=== PATIENT | female | born 1995 | race Two or more races ===

== ENCOUNTER 2022-10-28 16:57 | Emergency (ER) | payer OTHER, SELFPAY ==
[2022-10-28 17:00] VITALS: BP 124/93; PULSE 98; RESP 16; TEMP 37.6; O2SAT 98; BMI 42.5
--- NOTE | 2022-10-28 17:58 | PC.NURSE ---
pt presents to ED because patients states 2 weeks ago she has a uti and was placed on keflex. pt finished antibiotic. pt symptoms never went away so she saw her pcp and was told that it coule have traveled up to her kidneys. pt states she went to urgent care today and was placed on valtrex and zofran. pt was swabbed for herpes but was told results would take 3 days to get back. pt states she started sleeping with someone new a month ago and always wears a condom but 2 weeks ago she didn't use one. pt states she now has blisters on her vagina and has burning and urgency with urination.
--- NOTE | 2022-10-28 18:02 | ED.GENADUL1 ---
HPI - General Adult General Chief complaint: Skin/Abscess/Foreign Body Stated complaint: UTI Time Seen by Provider: 10/28/22 17:30 Source: patient Mode of arrival: Wheelchair Limitations: no limitations History of Present Illness HPI narrative: patient is a 27-year-old female who presents to the emergency department for the evaluation of dysuria, blistered area on the genitals and flank pain. She states she has had nausea, chills but no objective fevers. She has had no vomiting. She denies any vaginal discharge, she has had mild vaginal spotting. She states she had sexual intercourse over the weekend, she and her partner used a condom. She is concerned that she may be having a reaction to the condom usage and having irritation. 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 She states she was treated for chlamydia several months ago with two pills. She is not concerned for . She reports some discomfort to the low back, she describes it as similar to menstrual period cramps. she was at urgent care prior to arrival, she was started on Valtrex and Zofran. She is tearful, she does not understand her treatment plan from urgent care and states that the urine was sent off but she was told she will not receive results for three days. Related Data Previous Rx's Medication Instructions Recorded cephalexin 500 mg capsule 500 mg PO Q8H 5 days #15 caps 10/28/22 fluconazole 150 mg tablet 150 mg PO DAILY 1 dose #1 tab 10/28/22 (Diflucan) oxycodone-acetaminophen 5 mg-325 1 tab PO Q6H PRN pain #10 tabs 10/28/22 mg tablet (Percocet) phenazopyridine 200 mg tablet 200 mg PO Q8H 2 days #6 tabs 10/28/22 (Pyridium) Allergies Allergy/AdvReac Type Severity Reaction Status Date / Time ibuprofen Allergy Intermediate Verified 10/28/22 17:00 Review of Systems ROS Constitutional Reports: chills; Denies: fever Ears, nose, mouth, and throat Denies: throat pain or neck pain Respiratory Denies: shortness of breath or cough Gastrointestinal Reports: nausea; Denies: abdominal pain or vomiting Genitourinary Reports: painful urination; Denies: pelvic pain Musculoskeletal Reports: back pain Neurological Denies: headache Hematologic/Lymphatic Denies: easy bruising Exam Narrative Exam Narrative: Gen.: Awake, alert, in no distress Head: Normocephalic, atraumatic ENT: Moist mucous membranes Respiratory: No respiratory distress Gastrointestinal: Abdomen is soft, nondistended and nontender to palpation : Patient examined with Mira Alexander RN at bedside throughout the duration of the exam. Multiple small vesicles noted of the right labia and perineum, two small vesicles noted of the left labia. Speculum exam shows minimal white vaginal discharge, no bleeding noted. No cervical motion tenderness or adnexal tenderness. No pain out of proportion on exam. Extremities: Moves extremities equally, no injuries noted Psych: Normal mood and affect Neuro: No focal neuro deficit Skin: Warm, dry, intact Constitutional Vital Signs - 24 hr 10/28/22 17:00 Temperature 99.6 F Pulse Rate [Monitor] 98 H Respiratory Rate 16 Blood Pressure [Right Arm] 124/93 H Pulse Oximetry 98 Course Vital Signs Vital signs: Vital Signs Temperature 99.6 F 10/28/22 17:00 Pulse Rate 98 H 10/28/22 17:00 Respiratory Rate 16 10/28/22 17:00 Blood Pressure 124/93 H 10/28/22 17:00 Pulse Oximetry 98 10/28/22 17:00 Temperature 99.6 F 10/28/22 17:00 Pulse Rate 98 H 10/28/22 17:00 Respiratory Rate 16 10/28/22 17:00 Blood Pressure 124/93 H 10/28/22 17:00 Pulse Oximetry 98 10/28/22 17:00 Medical Decision Making MDM Narrative Medical decision making narrative: pelvic exam was performed. Patient was noted to have blistered/vesicular areas to the labia and perineum. This is suspicious for genital herpes. A herpes viral culture was obtained in the emergency department as well as pelvic cultures for wet prep and gonorrhea/chlamydia. Patient was instructed that she should take the Valtrex until she is seen by a inspectors and regulatory officers or has pelvic cultures resulted. She has Zofran was given to her at urgent care. Her urine in the emergency department does show a urinary tract infection with negative test. Patient started on Keflex and she requests Diflucan to prevent yeast infection. Shee was given Diflucan, Keflex, Pyridium for urinary tract infection from the Emergency Room and discharged home with a prescription for Percocet for pain control as needed. She was given topical Urojet to apply to vesicles on the labia for comfort. She was strongly encouraged follow-up closely with her inspectors and regulatory officers, we will refer her to Dr. Keen's office. Return to the emergency department if symptoms change or worsen. Medical Records Medical records reviewed: Yes I reviewed the patient's medical records Lab Data Lab results reviewed: Yes I reviewed the patient's lab results Labs: Lab Results 10/28/22 10/28/22 Range/Units 17:05 18:08 Urine Color Lt. yellow (YELLOW) Urine Clarity Clear (CLEAR) Urine pH 6.0 (5.0-9.0) Ur Specific [place] 1.010 (1.005-1.025) Urine Protein Negative (NEG/TRACE) mg/dL Urine Glucose (UA) Negative (NEGATIVE) mg/dL Urine Ketones Negative (NEGATIVE) mg/dL Urine Occult Blood Small A (NEGATIVE) Urine Nitrite Negative (NEGATIVE) Urine Bilirubin Negative (NEGATIVE) Urine Urobilinogen 1.0 (0.2-1.0) EU/dL Ur Leukocyte Esterase Trace A (NEGATIVE) Urine RBC 2-5 A (0-2) #/HPF Urine WBC 5-10 A (NONE SEEN) #/HPF Ur Squamous Epith Cells Few A (NONE/RARE) #/LPF Urine Crystals None seen (None Seen) #/HPF Urine Bacteria Trace A (NONE SEEN) #/HPF Urine Casts None seen (NONE SEEN) #/LPF Urine Mucus Trace A (NONE SEEN) Ur Culture Indicated? Yes Urine HCG, Qual Negative (NEGATIVE) Discharge Plan Discharge Chief Complaint: Skin/Abscess/Foreign Body Clinical Impression: UTI (urinary tract infection), Skin rash Patient Disposition: Home, Self-Care Time of Disposition Decision: 18:29 Condition: Good Prescriptions / Home Meds: New cephalexin 500 mg capsule 500 mg PO Q8H 5 Days Qty: 15 0RF phenazopyridine [Pyridium] 200 mg tablet 200 mg PO Q8H 2 Days Qty: 6 0RF oxycodone-acetaminophen [Percocet] 5-325 mg tablet 1 tab PO Q6H PRN (Reason: pain) Qty: 10 0RF fluconazole [Diflucan] 150 mg tablet 150 mg PO DAILY Qty: 1 0RF Rx Instructions: administer on day 1 of therapy Instructions: Urinary Tract Infection in Women (ED), Dysuria (ED) Stand Alone Forms: Portal Instructions Referrals: Physician,Non-Staff, [Primary Care Provider] - 1 week
[2022-10-28 18:06] LABS: Bilirubin Urine NEGATIVE (NEGATIVE); Blood Urine SMALL (NEGATIVE); Clarity Urine CLEAR (CLEAR); Color Urine LT. YELLOW (YELLOW); Glucose Urine UA NEGATIVE (NEGATIVE); Ketones Urine NEGATIVE (NEGATIVE); Leukocyte Esterase Urine TRACE (NEGATIVE); Nitrite Urine NEGATIVE (NEGATIVE); Protein Urine NEGATIVE (NEG/TRACE)
[2022-10-28 18:08] LABS: HCG Qualitative Urine* NEGATIVE (NEGATIVE); Urine Microscopic Indicated YES
[2022-10-28 18:18] LABS: Bacteria Urine TRACE #/HPF (NONE SEEN); Mucus Urine TRACE (NONE SEEN)
[2022-10-28 18:19] LABS: Cast Seen? NONE SEEN #/LPF (NONE SEEN); Crystals Seen? None Seen #/HPF (None Seen); Squamous Epithelial Cell Urine FEW #/LPF (NONE/RARE); Urine Culture Indicated YES
[2022-10-28] MEDS: LIDOCAINE 2% JELLY 10 ML (18:38)
[2022-10-31 00:06] LABS: Neisseria gonorrhoeae, NAA Negative (Negative)
[2022-11-04 12:14] LABS: HSV-1 DNA Negative (Negative); HSV-2 DNA Positive (Negative)
== END 2022-10-28 18:45 | disposition home or self-care (01) ==
PROVIDERS: Physician Assistant; Emergency Provider Emergency Medicine Emergency Medical Services
DX: N39.0 Urinary tract infection, site not specified (principal); R21 Rash and other nonspecific skin eruption
CPT/HCPCS: 81003; 81015; 84703; 87086; 87210; 87491; 87529; 87591; 99284